=== PATIENT | female | born 1995 | race Two or more races ===

== ENCOUNTER 2017-01-13 09:59 | Emergency (ER) | payer MEDICAID, OTHER ==
[~2017-01-13] VITALS: Ht 162.6 cm; Wt 65.8 kg
[2017-01-13 14:11] VITALS: BP 114/53
[2017-01-13] MEDS ORDERED: cefTRIAXone SOD 1,000 MG VL IM ONE (14:15)
[2017-01-13] MEDS ORDERED: methylPREDNISolone SOD SUCC 125 MG/2 ML VL IM ONE (14:15)
== END 2017-01-13 14:34 | disposition home or self-care (01) ==
LOC: ER 09:59
DX: J03.90 Acute tonsillitis, unspecified (principal)
CPT/HCPCS: 96372; 99284; J0696; J2930